=== PATIENT | female | born 1995 | race Caucasian/White ===

== ENCOUNTER 2021-08-16 21:53 | Emergency (ER) | payer OTHER, SELFPAY ==
[2021-08-16 22:21] VITALS: BP 113/79; PULSE 62; RESP 18; TEMP 36.6; O2SAT 98; BMI 25.6
--- NOTE | 2021-08-17 02:39 | ED.LOWEXIN ---
HPI - Extremity Injury (Lower) General Chief Complaint: Extremity Injury, Lower Stated Complaint: rt grt toenail injury Time Seen by Provider: 08/17/21 02:38 Source: patient Mode of arrival: Ambulatory Limitations: no limitations History of Present Illness HPI Narrative: This is a 25-year-old female comes with injury to her right great toenail. Patient was kicking a ball when the dog caught the nail and lifted it up off the toe. Patient states she does not think the dog actually bit her but that caught the edge of the nail lifting upwards. Patient states tetanus is up-to-date. She has pain at the site of the nail she denies any pain elsewhere in the toe. She does not have any numbness or tingling. She denies any other injuries. Otherwise healthy. No known drug allergies. Related Data Home Medications Medication Instructions Recorded Confirmed No Known Home Medications 08/16/21 08/16/21 Allergies Allergy/AdvReac Type Severity Reaction Status Date / Time No Known Drug Allergies Allergy Verified 08/16/21 22:26 Review of Systems Review of Systems ROS Unobtainable: All systems reviewed & are unremarkable except as noted in HPI and below Patient History Medical History Adult general medical exam Encounter for counseling regarding contraception Irregular intermenstrual bleeding Missed period Family History Father Hypertension Mother Cancer Grandfather Diabetes mellitus Grandmother Cancer Social History Smoking Status: Never smoker Smoking Status: Never smoker alcohol intake frequency: other Substance Use Type: does not use Exam Narrative Exam Narrative: GENERAL: Alert and oriented x three, female in mild distress HEENT: Head normocephalic, atraumatic, EOMI, pupils reactive, face symmetric, moist mucous membranes NECK: Supple, full range of motion EXTREMITIES: Normal range of motion, no clubbing or edema. Neurovascularly intact. Patient's nail on her right great toe is slightly lifted off the nail bed on the anterior portion of the nail it is intact the nail itself. The medial posterior corner of the cuticle has been pushed backwards exposing portion of the nail. There is no actual laceration the skin appears intact otherwise. There is no subungual hematoma. Patient has a small amount of serous drainage. No lacerations to the skin in the surrounding area or puncture wounds. Patient is nontender throughout the toe and foot over bony area. NEUROLOGICAL: Cranial nerves II through XII grossly intact. Moving all extremities SKIN: Warm, dry, no petechiae, no rashes or lesions. Initial Vital Signs Initial Vital Signs: Vital Signs Temperature 98 F 08/16/21 22:21 Pulse Rate 62 08/16/21 22:21 Respiratory Rate 18 08/16/21 22:21 Blood Pressure 113/79 08/16/21 22:21 Pulse Oximetry 98 08/16/21 22:21 Course Orders Ordered: Discontinued Medications Lidocaine/Prilocaine (Lidocaine/Prilocaine 5 Gm) 5 gm TOP NOW ONE Stop: 08/17/21 02:47 Last Admin: 08/17/21 02:50 Dose: 5 gm Documented by: CRIS Tramadol HCl (Tramadol 50 Mg Prepack) 1 bottle MISC SEEINSTR ONE Stop: 08/17/21 03:31 Last Admin: 08/17/21 03:47 Dose: 1 bottle Documented by: [email or web address] Vital Signs Vital signs: Vital Signs - 8 hr 08/16/21 22:21 Temperature 98 F Pulse Rate 62 Respiratory Rate 18 Blood Pressure 113/79 Pulse Oximetry 98 MDM - Extremity Injury (Lower) MDM Narrative Medical decision making narrative: This is a 25-year-old female with partial nail avulsion. The nail itself is intact. The right proximal radial corner of the nail is shifted slightly forward, the anterior edge of the nail is slightly lifted but the nail is still quite attached to the underlying skin. Discussed with patient if she would like digital block verses emptying some topical prior lidocaine and to reinsert the nail edge under the skin in the right coronary. Patient elected for topical prior like cane. Area was manipulated with minimal improvement. Patient was offered to be digitally blocked again to either re-attempt or remove the nail if she prefers. At this time patient defers. Discussed with patient plan to reinforce the nail as it grows out will have to trim the edge. But will protect the underlying skin at this time. There is some risk that the nail will not grow in normally in all this was discussed. Patient's tetanus is up-to-date. Discharge Plan Departure Patient Disposition: Home Clinical Impression: Avulsed toenail Activity Restrictions/Additional Instructions: Follow-up in the next 1-2 weeks for recheck. You may take Tylenol and/or ibuprofen as needed for pain. Make sure to reinforce the toenail so it does not get caught all walking, putting on socks or shoes and ripping off the toenail. Your toenail will eventually fall off. It will likely grow back but this takes months. There is always a small chance it will not return. Please return for signs of infection, redness or warmth, increasing swelling, new numbness or loss of sensation or other new or concerning symptoms. Prescriptions: No Action No Known Home Medications 0RF Referrals: Clau Silva ARNP [Primary Care Provider] -
[2021-08-17] MEDS: LIDOCAINE/PRILOCAINE 5 GM TOP (02:50)
[2021-08-17] MEDS: TRAMADOL 50 MG PREPACK 1 BOTTLE MISC (03:47)
[2021-08-17 03:53] VITALS: BP 116/75; PULSE 68; RESP 14; O2SAT 99
== END 2021-08-17 03:54 | disposition home or self-care (01) ==
PROVIDERS: Emergency Provider Emergency Medicine; PCP Registered Nurse
DX: S91.201A Unspecified open wound of right great toe with damage to nail, initial encounter (principal); W21.09XA Struck by other hit or thrown ball, initial encounter
CPT/HCPCS: 99282